=== PATIENT | male | born 1940 | race Hispanic/Latino ===

== ENCOUNTER 2019-04-11 11:56 | Inpatient (IN) | payer OTHER ==
[~2019-04-11] VITALS: Ht 152.4 cm; Wt 56.2 kg
[2019-04-11 12:23] LABS: BASOPHILS % (AUTO) 0.4 % (0.0-5.0); EOSINOPHILS % (AUTO) 1.5 % (0.0-8.0); HEMATOCRIT 35.9 % (42-54); LYMPHOCYTES % (AUTO) 18.6 % (21.0-51.0); MEAN CORPUSCULAR HEMOGLOBIN 28.8 pg (27.0-33.0); MEAN CORPUSCULAR HGB CONC 32.2 g/dL (32.0-36.0); MEAN CORPUSCULAR VOLUME 89.5 fL (79-99); NEUTROPHILS % (AUTO) 72.5 % (40.0-77.0); PLATELET COUNT (AUTO) 186 K/uL (130-400); RED BLOOD CELL COUNT(AUTO) 4.02 MIL/uL (4.50-6.20); WHITE BLOOD COUNT (AUTO) 6.5 K/uL (4.8-10.8)
[2019-04-11 12:41] LABS: CREATININE 2.6 mg/dL (0.5-1.5); POTASSIUM 4.6 mmol/L (3.5-5.1)
[2019-04-11 12:54] LABS: BILIRUBIN,TOTAL 0.3 mg/dL (0.2-1.0); THYROID STIMULATING HORMONE 1.6 uIU/mL (0.36-3.74); TOTAL PROTEIN, SERUM 6.8 g/dL (6.0-8.3)
[2019-04-11] MEDS ORDERED: VANCOMYCIN 1GM+NS 250ML 250 ML IV PRN (14:00)
[2019-04-11] MEDS ORDERED: ACETAMINOPHEN 325 MG TAB PO PRN (14:15)
[2019-04-11] MEDS ORDERED: ONDANSETRON HCL 4 MG/2 ML VIAL IVP PRN (14:15)
[2019-04-11 14:50] LABS: INR 0.96 (0.85-1.15); PARTIAL THROMBOPLASTIN TIME 28.7 SEC (26.3-35.5); PROTHROMBIN TIME 10.1 SEC (9.6-11.6)
[2019-04-11] MEDS ORDERED: FURO20TA4 PO (22:37)
[2019-04-11] MEDS ORDERED: ATOR20TA65 PO (22:37)
[2019-04-11] MEDS ORDERED: CHOL50004 PO (22:37)
[2019-04-11] MEDS ORDERED: LISI-613 PO (22:37)
[2019-04-11] MEDS ORDERED: AMLO10TA7 PO (22:37)
[2019-04-11] MEDS ORDERED: SPIR50TA5 PO (22:37)
[2019-04-12] VITALS (13 sets, daily range): BP systolic 137–165; BP diastolic 53–93
--- NOTE | 2019-04-12 00:55 | NUR ---
Atmitted at 0025 Atmitted patient to room 203 from ED at 0025, Heart rate 32 but asymptomatic at this time. Alert and oriented x 4. Patient is pending pacemaker placement in the a.m., consent signed and patient prepped. Patient resting comfortably and no complaints at this time.
[2019-04-12 04:42] LABS: BASOPHILS % (AUTO) 0.5 % (0.0-5.0); HEMATOCRIT 34.6 % (42-54); LYMPHOCYTES % (AUTO) 23.7 % (21.0-51.0); MEAN CORPUSCULAR HEMOGLOBIN 28.4 pg (27.0-33.0); MEAN CORPUSCULAR HGB CONC 32.2 g/dL (32.0-36.0); MEAN CORPUSCULAR VOLUME 88.2 fL (79-99); MONOCYTES % (AUTO) 8.6 % (3.0-13.0); NEUTROPHILS % (AUTO) 65.2 % (40.0-77.0); PLATELET COUNT (AUTO) 186 K/uL (130-400); RED BLOOD CELL COUNT(AUTO) 3.93 MIL/uL (4.50-6.20); RED CELL DISTRIBUTION WIDTH 15.1 % (11.0-15.5); WHITE BLOOD COUNT (AUTO) 6.5 K/uL (4.8-10.8)
[2019-04-12 05:01] LABS: CREATININE 2.4 mg/dL (0.5-1.5); POTASSIUM 5.2 mmol/L (3.5-5.1)
[2019-04-12] MEDS ORDERED: ENOXAPARIN SODIUM 30 MG/0.3 ML SQ SCH (09:00)
[2019-04-12] MEDS ORDERED: CHOLECALCIFEROL 5000 UNIT PO SCH (09:00)
[2019-04-12] MEDS: FAMOTIDINE/PF 20 MG/2 ML VIAL IV SCH (09:19)
[2019-04-12] MEDS: SODIUM CHLORIDE 0.9% 1000ML 1,000 ML IV SCH ×2 (09:19→22:23)
[2019-04-12] MEDS: LISINOPRIL 20 MG TABLET PO SCH ×2 (09:24→20:21)
[2019-04-12] MEDS: SPIRONOLACTONE 25 MG TAB PO SCH (09:24)
[2019-04-12] MEDS: FUROSEMIDE 20 MG TABLET PO SCH (09:24)
[2019-04-12] MEDS ORDERED: BUPIVACAINE/PF 0.25% 30ML VIAL IJ ONE (10:27)
[2019-04-12] MEDS ORDERED: MIDAZOLAM HCL 1 MG/ML 2ML VIAL ONE ×2 (10:27→11:23)
[2019-04-12] MEDS ORDERED: IOHEXOL-350 50ML VIAL IV ONE (10:27)
[2019-04-12] MEDS ORDERED: MEPERIDINE-PF 25 MG/ML SYG ONE ×2 (10:27→11:23)
[2019-04-12] MEDS ORDERED: LIDOCAINE HCL 1% MDV 50ML VIAL ONE (10:28)
[2019-04-12] MEDS ORDERED: VANCOMYCIN 1GM+NS 250ML 500 ML IV ONE (10:28)
--- NOTE | 2019-04-12 10:42 | NUR ---
TO [employer]NA[employer] VIA BED.
[2019-04-12] MEDS ORDERED: TRAMADOL HCL 50 MG TABLET PO PRN (12:15)
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
[2019-04-12] MEDS ORDERED: ATORVASTATIN CALCIUM 20 MG TABLET PO SCH (21:00)
[2019-04-13 03:46] VITALS: BP 144/75
[2019-04-13 07:40] VITALS: BP 158/79
[2019-04-13] MEDS: SPIRONOLACTONE 25 MG TAB PO SCH (09:39)
[2019-04-13] MEDS: FAMOTIDINE/PF 20 MG/2 ML VIAL IV SCH (09:39)
[2019-04-13] MEDS: FUROSEMIDE 20 MG TABLET PO SCH (09:40)
[2019-04-13] MEDS: LISINOPRIL 20 MG TABLET PO SCH (09:40)
[2019-04-13 11:35] VITALS: BP 164/81
== END 2019-04-13 12:00 | disposition home or self-care (01) | DRG 242 ==
LOC: EDH 11:56 → EDHIP 14:00 → 2AH 04-12 00:06
PROVIDERS: ADMIT Internal Medicine; ATTEND Internal Medicine
PROC: 0JH606Z Insertion of Pacemaker, Dual Chamber into Chest Subcutaneous Tissue and Fascia, Open Approach (ICD-10-PCS; principal; 2019-04-12)
PROC: 02H63JZ Insertion of Pacemaker Lead into Right Atrium, Percutaneous Approach (ICD-10-PCS; 2019-04-12)
PROC: 02HK3JZ Insertion of Pacemaker Lead into Right Ventricle, Percutaneous Approach (ICD-10-PCS; 2019-04-12)
DX: I44.1 Atrioventricular block, second degree (principal); I50.33 Acute on chronic diastolic (congestive) heart failure; N18.4 Chronic kidney disease, stage 4 (severe); I13.0 Hypertensive heart and chronic kidney disease with heart failure and stage 1 through stage 4 chronic kidney disease, or unspecified chronic kidney disease; J44.9 Chronic obstructive pulmonary disease, unspecified; F17.200 Nicotine dependence, unspecified, uncomplicated; E11.22 Type 2 diabetes mellitus with diabetic chronic kidney disease; K80.20 Calculus of gallbladder without cholecystitis without obstruction; N28.1 Cyst of kidney, acquired; V89.2XXA Person injured in unspecified motor-vehicle accident, traffic, initial encounter; Y92.410 Unspecified street and highway as the place of occurrence of the external cause; Y93.89 Activity, other specified; Y99.8 Other external cause status; Z99.81 Dependence on supplemental oxygen
CPT/HCPCS: 33208; 36415; 71045; 76700; 80048; 80053; 82948; 83880; 84443; 84484; 85025; 85610; 85730; 93005; 93306; 93925; 99156; 99157; C1785; G0378; J2175; J2250; J3370; J3490; J7030; Q9967